=== PATIENT | female | born 1940 | race Caucasian/White ===

== ENCOUNTER 2021-06-29 05:10 | Day surgery (SDC) | payer OTHER ==
[2021-06-27 15:43] VITALS: BMI 32.5
[~2021-06-29 05:10] MED LIST: TOBRAMYCIN 0.3% OPHTH OINT 3.5 GM OD ONE
[2021-06-29] MEDS: TROPICAMIDE 1% OPHTH SOLN 15 ML BOTTLE OP SCH ×3 (06:15→06:45)
[2021-06-29] MEDS: PHENYLEPHRINE 2.5% OPHTH SOLN 15 ML BOTTLE OP SCH ×2 (06:15→06:30)
[2021-06-29] MEDS: DICLOFENAC SODIUM 0.1% OPHTHALMIC 2.5ML BOTTLE ONE ×3 (06:15→06:45)
[2021-06-29] MEDS: CIPROFLOXACIN HCL 0.3% OPHTH 2.5ML BOTTLE OP SCH ×3 (06:16→06:45)
[2021-06-29] MEDS ORDERED: CIPROFLOXACIN 0.3% EYE DROPS 5 ML BOTTLE ONE (06:17)
[2021-06-29] MEDS ORDERED: PHENYLEPHRINE 2.5% OPTHALMIC DROP BOTTLE ONE (06:18)
[2021-06-29] MEDS ORDERED: TROPICAMIDE 1% OPHTH SOLN 15 ML BOTTLE ONE (06:18)
[2021-06-29 07:03] VITALS: TEMP 97.8
[2021-06-29] MEDS ORDERED: ACETAMINOPHEN 325 MG TABLET (FP) PO PRN (07:15)
[2021-06-29] MEDS ORDERED: KETOROLAC TROMETHAMINE 0.5% EYE DROP 1 DROP DROPS OP SCH (07:15)
[2021-06-29] MEDS ORDERED: PROPOFOL 20 ML ONE ×2 (07:30)
[2021-06-29] MEDS ORDERED: MIDAZOLAM HCL 2 MG/2 ML SINGLE DOSE VIAL ONE (07:30)
[2021-06-29] MEDS ORDERED: SUCCINYLCHOLINE CHLORIDE 200 MG/10 ML SYRINGE ONE (07:30)
[2021-06-29] MEDS ORDERED: EPINEPHrine/PF 1 MG/1 ML (1:1,000) AMPULE ONE (07:37)
[2021-06-29] MEDS ORDERED: ACETYLCHOLINE 1:100 INTRA-OCUL 20 MG/2 ML KIT ONE (07:38)
[2021-06-29] MEDS ORDERED: TETRACAINE 0.5% OPHTH SOLN 2 ML BOTTLE ONE (07:38)
[2021-06-29] MEDS ORDERED: LIDOCAINE HCL/PF 2% SDV 5ML VIAL ONE (07:38)
[2021-06-29] MEDS ORDERED: LIDOCAINE HCL/PF 1% SDV 5ML VIAL ONE (07:38)
[2021-06-29] MEDS ORDERED: BUPIVACAINE HCL/PF 0.75% 10 ML VIAL ONE (07:38)
[2021-06-29] MEDS ORDERED: POVIDONE-IODINE 5% OPHTHALMIC PREP 30 ML SOLUTION ONE (07:39)
[2021-06-29] MEDS ORDERED: LIDOCAINE HCL/PF 2% SDV 5ML VIAL INF ONE (07:49)
[2021-06-29] MEDS ORDERED: BUPIVACAINE HCL/PF 0.75% 10 ML VIAL RB ONE (07:49)
[2021-06-29] MEDS ORDERED: POVIDONE-IODINE 5% OPHTHALMIC PREP 30 ML SOLUTION OD ONE (07:51)
[2021-06-29] MEDS ORDERED: BSS (NA/CA/MG/K) BALANCED SALT SOLUTION OPHTH SOLN 15 ML BOTTLE OD ONE (07:54)
[2021-06-29] MEDS ORDERED: CHONDROITIN SU A/HYALUR SOD 1 KIT IO ONE (07:55)
[2021-06-29] MEDS ORDERED: TOBRAMYCIN/DEXAMETHASONE OPHTH. OINTMENT 1 TUBE ONE (08:02)
[2021-06-29] MEDS ORDERED: EPINEPHrine/PF 1 MG/1 ML (1:1,000) AMPULE SQ ONE (08:06)
[2021-06-29] MEDS ORDERED: TOBRAMYCIN 0.3% OPHTH OINT 3.5 GM OD ONE (08:21)
[2021-06-29 12:03] VITALS: BP 133/70; PULSE 82
== END 2021-06-29 10:30 | disposition home or self-care (01) ==
LOC: JASU-SURG 05:10
PROVIDERS: ATTEND Ophthalmology
PROC: 08RJ3JZ Replacement of Right Lens with Synthetic Substitute, Percutaneous Approach (ICD-10-PCS; principal; 2021-06-29 07:30)
DX: H25.11 Age-related nuclear cataract, right eye (principal); E11.9 Type 2 diabetes mellitus without complications
CPT/HCPCS: 82962